=== PATIENT | female | born 1980 | race Caucasian/White ===

== ENCOUNTER 2019-06-09 19:30 | Emergency (ER) | payer OTHER ==
--- NOTE | 2019-06-09 19:47 | EDM.PDOC ---
ED HPI GENERAL MEDICAL PROBLEM - General Chief Complaint: ENT Problem Stated Complaint: BILATERAL EAR PAIN Time Seen by Provider: 06/09/19 19:45 Source of Information: Reports: Patient, Family (Mother). Denies: Old Records ( [facility] EMR. No paper hospital chart available.) History Limitations: Reports: No Limitations - History of Present Illness INITIAL COMMENTS - FREE TEXT/NARRATIVE: The patient was brought to the emergency room via private automobile by her mother. She has a 2-3 day history of fever and chills, however she has not measured her temperature. She has been taking 200 mg of ibuprofen every 2 hours occasionally during the last couple of days with last dose at 17:00 hours this afternoon. The patient complains of 10/10 sharp bilateral otalgia with additional sore throat however no known exposure to infection. She has been using a Q-tip to clean out her ears, however no history of acute injury.No recent history of abdominal pain, heartburn, nausea, diarrhea, melena, gross hematochezia, or any food intolerance, including fatty foods, etc.. The patient also denies any recent fever, cough, wheezing, dyspnea, etc.. She denies any gross hematuria, colic, or other UTI symptoms. Onset: Gradual Onset Date: 06/07/19 Duration: Constant, Getting Worse Location: Reports: Other (As above) Quality: Reports: Sharp Severity: Severe Improves with: Reports: None Worsens with: Reports: None Context: Reports: Other (As above). Denies: Sick Contact, Trauma Associated Symptoms: Reports: Fever/Chills. Denies: Confusion, Chest Pain, Cough, cough w sputum, Diaphoresis, Headaches, Loss of Appetite, Malaise, Nausea /Vomiting, Rash, Shortness of Breath, Syncope Treatments CELL PREPARER: Reports: NSAIDS - Related Data Allergies Allergy/AdvReac Type Severity Reaction Status Date / Time No Known Allergies Allergy Verified 06/09/19 19:32 Home Meds: Home Meds Amoxicillin/Clavulanate K [Augmentin 875-125 MG] 1 tab PO BIDMEALS #14 tablet [Rx] Past Medical History - Past Health History Medical/Surgical History: Denies Medical/Surgical History Social & Family History - Tobacco Use Smoking Status *Q: Never Smoker Tobacco Use Within Last Twelve Months: No Used Tobacco, but Quit: No Smoking Cessation Information Provided To Patient: No Second Hand Smoke Exposure: No Second Hand Smoke Education Provided: No - Living Situation & Occupation Living situation: Reports: with Family (Member of the colony in [place]) ED ROS GENERAL - Review of Systems Review Of Systems: Comprehensive ROS is negative, except as noted in HPI. ED EXAM, GENERAL - Physical Exam Exam: See Below Exam Limited By: No Limitations General Appearance: Alert, WD/WN, No Apparent Distress Eye Exam: Left Eye: Bleeding, Bilateral Eye: EOMI, Normal Inspection (No nystagmus), PERRL Ears: Normal Canal, Hearing Grossly Normal, Normal TMs, Other (Moderate localized tenderness of the auricles bilaterally, however no evidence of clinical infection in the left auricle). No: Normal External Exam (+1 edema with superficial erosion over the outer inner right auricle with no lymphangitis , drainage, auricular swelling, or retro-auricular tenderness, erythema, etc. ) , Hearing Loss Nose: Normal Inspection, Normal Mucosa, No Blood Throat/Mouth: Normal Inspection, Normal Lips, Normal Teeth, Normal Gums, Normal Oropharynx, Normal Voice, No Airway Compromise. No: Dysphagia, Perioral Cyanosis Head: Atraumatic, Normocephalic. No: Facial Swelling, Facial Tenderness, Sinus Tenderness Neck: Normal Inspection, Supple, Non-Tender, Full Range of Motion. No: Carotid Bruit, Lymphadenopathy (L), Lymphadenopathy (R), Thyromegaly Respiratory/Chest: No Respiratory Distress, Lungs Clear, Normal Breath Sounds, No Accessory Muscle Use, Chest Non-Tender. No: Pleural Rub, Retractions Cardiovascular: Normal Peripheral Pulses, No Edema, No Gallop, No JVD, No Murmur , No Rub, Tachycardia (Secondary to fever. Regular rhythm.). No: Gallop/S3, Gallop/S4, Friction Rub Peripheral Pulses: 2+: Radial (L), Radial (R), Dorsalis Pedis (L), Dorsalis Pedis (R) GI/Abdominal: Normal Bowel Sounds, Soft, Non-Tender, No Organomegaly, No Distention, No Abnormal Bruit, No Mass, Other (Obese). No: Guarding (Female) Exam: Deferred Rectal (Female) Exam: Deferred Back Exam: Normal Inspection, Full Range of Motion. No: CVA Tenderness (L), CVA Tenderness (R), Muscle Spasm Extremities: Normal Inspection, Normal Range of Motion, Non-Tender, No Pedal Edema, Normal Capillary Refill. No: Olga's Sign Neurological: Alert, Oriented, CN II-XII Intact, Normal Cognition, Normal Gait, Normal Reflexes (Negative Babinski's), No Motor/Sensory Deficits Psychiatric: Normal Affect, Normal Mood Skin Exam: Erythema (Right auricle as above), Increased Warmth (As above; mild right auricle), Wound/Incision. No: Diaphoretic, Lymphangitis, Stud(s) Lymphatic: No Adenopathy Course - Vital Signs Last Recorded V/S: Last Vital Signs Temp 37.9 C 06/09/19 19:30 Pulse 112 H 06/09/19 19:30 Resp 16 06/09/19 19:30 BP 143/82 H 06/09/19 19:30 Pulse Ox 100 06/09/19 19:30 Vital Signs - 24 hr 06/09/19 19:30 Temperature [ 37.9 C Temporal] Pulse, 112 H Peripheral [ Pulse Oximetry] Respiratory 16 Rate Blood Pressure 143/82 H [Right Upper Arm] O2 Sat by Pulse 100 Oximetry - Orders/Labs/Meds Orders: Active Orders 24 hr Category Date Time Status CULTURE STREP A CONFIRMATION [] Stat Lab 06/09/19 19:52 Results STREP SCRN A RAPID W CULT CONF [] Stat Lab 06/09/19 19:48 Ordered Obtain Past Medical Record [OM.PC] Routine Oth 06/09/19 19:48 Active Labs: Microbiology 06/09/19 19:52 Influenza Type A Antigen Screen - Final Nasal, Left NEGATIVE INFLUENZA A VIRUS AG REFERENCE RANGE: NEGATIVE Influenza Type B Antigen Screen - Final NEGATIVE INFLUENZA B VIRUS AG REFERENCE RANGE: NEGATIVE 06/09/19 19:52 Group A Streptococcus Rapid Screen - Final Throat NEGATIVE STREP A SCREEN REFERENCE RANGE: NEGATIVE Meds: Medications Discontinued Medications Generic Name Dose Route Start Last Admin Trade Name Freq PRN Reason Stop Dose Admin Ceftriaxone Sodium 1 gm 06/09/19 19:57 06/09/19 20:11 Rocephin IM 06/09/19 19:58 1 gm ONETIME ONE Administration Lidocaine HCl 2.1 ml 06/09/19 19:57 06/09/19 20:11 Xylocaine-Mpf 1% INJECT 06/09/19 19:58 2.1 ml ONETIME ONE Administration - Radiology Interpretation Free Text/Narrative:: None Departure - Departure Time of Disposition: 20:25 Disposition: Home, Self-Care 01 Condition: Good Clinical Impression: Cellulitis, Pharyngitis - Discharge Information *PRESCRIPTION DRUG MONITORING PROGRAM REVIEWED*: Not Applicable *COPY OF PRESCRIPTION DRUG MONITORING REPORT IN PATIENT MAKAYLA: Not Applicable Prescriptions: Amoxicillin/Clavulanate K [Augmentin 875-125 MG] 1 tab PO BIDMEALS #14 tablet Instructions: Amoxicillin; Clavulanic Acid tablets, Ceftriaxone injection, Cellulitis, Adult, [id number] Referrals: PCP,None [Primary Care Provider] - Forms: ED Department Discharge Additional Instructions: 1. Follow up with your regular provider in 10-14 days as needed, if symptoms persist. Bring these discharge instructions with you to that visit.. 2. Tylenol 650 mg by mouth every 4 hours and/or OTC ibuprofen 2-3 tabs by mouth every 6 hours with food as directed./needed. You may stagger these medications for 48-72 hours only, which essentially means that you are receiving a pain medication about every 2 hours. 3. NEVER EXCEED THE RECOMMENDED DOSE OF MEDICINES, INCLUDING OTC MEDICINES, ETC. 4. Listerine gargles four times per day, after meals and at bedtime, with additional Chloroseptic lozenges or spray as needed for 10 days and/or until symptoms resolve. 5. Obtain influenza booster BUCKY once current infection has resolved and no longer had a fever. 6. Immediately after this visit verify that your cellular telephone's voicemail has been activated and is empty. Also verify that your home telephone 's answering machine is operating properly and has space to receive messages. Note that it is sometimes necessary for us to be able to contact you at a later date to discuss your medical care. 7. Please remember that we are ALWAYS here for you and want to answer any questions you may have. Feel free to call the hospital any time and we call you back BUCKY. 8. Remember to take all 10 days of the antibiotic/Augmentin as prescribed, including the 6 tablets from our emergency room and the additional prescription of the 14 tablets. Diarrhea precautions with this medication as discussed. eScription for days Sepsis Event Note - Evaluation Sepsis Screening Result: Possible Sepsis Risk - Focused Exam Vital Signs: Vital Signs Temp Pulse Resp BP Pulse Ox 06/09/19 19:30 37.9 C 112 H 16 143/82 H 100 Date Exam was Performed: 06/09/19 Time Exam was Performed: 20:16 - Problem List & Annotations (1) Cellulitis SNOMED Code(s): 704522936 Code(s): L03.90 - CELLULITIS, UNSPECIFIED Status: Acute Priority: High Current Visit: Yes Onset Date: ~06/07/19 Annotation/Comment:: Moderate cellulitis of the outer inner right auricle with +2 erythema, mild erosion, however no drainage, lymphangitis, auricular swelling, or retroauricular tenderness/erythema. Various therapeutic options were discussed with the patient agreeing with IM Rocephin therapy. Initiate Augmentin therapy tomorrow morning with #6 emergency room prescription tablets provided an additional prescription of #14 tablets. Diarrhea precautions given. Qualifiers: Site of cellulitis: other site Qualified Code(s): L03.818 - Cellulitis of other sites (2) Pharyngitis SNOMED Code(s): 212752032 Code(s): J02.9 - ACUTE PHARYNGITIS, UNSPECIFIED Status: Acute Priority: High Current Visit: Yes Onset Date: ~06/07/19 Annotation/Comment:: Likely viral pharyngitis. She apparently never gets influenza boosters, however this was strongly encouraged as per discharge instructions. Listerine gargles, symptomatic relief, etc. as discussed. Qualifiers: Pharyngitis/tonsillitis etiology: other specified organisms Qualified Code( s): J02.8 - Acute pharyngitis due to other specified organisms - Problem List Review Problem List Initiated/Reviewed/Updated: Yes - My Orders Last 24 Hours: My Active Orders 06/09/19 19:48 STREP SCRN A RAPID W CULT CONF [RM] Stat Obtain Past Medical Record [OM.PC] Routine 06/09/19 19:52 CULTURE STREP A CONFIRMATION [RM] Stat - Assessment/Plan Last 24 Hours: My Active Orders 06/09/19 19:48 STREP SCRN A RAPID W CULT CONF [RM] Stat Obtain Past Medical Record [OM.PC] Routine 06/09/19 19:52 CULTURE STREP A CONFIRMATION [RM] Stat Assessment:: As above Plan: As above. Extensive precautions were given to the patient and her mother, who are in agreement with the treatment plan. See Patient Instructions for further treatment and plan.
[2019-06-09] MEDS ORDERED: cefTRIAXone 1 GM Vial IM ONE (19:57)
== END 2019-06-09 20:30 | disposition home or self-care (01) ==
LOC: LL.ED 19:30
DX: H60.11 Cellulitis of right external ear (principal); J02.9 Acute pharyngitis, unspecified
CPT/HCPCS: 87081; 87430; 87804; 96372; 99283-25; J0696; J2001